=== PATIENT | female | born 1995 | race Caucasian/White ===

== ENCOUNTER 2016-12-09 08:30 | Emergency (ER) | payer SELFPAY ==
[~2016-12-09] VITALS: Ht 160 cm; Wt 127.0 kg
--- NOTE | 2016-12-09 09:05 | PHYS DOC ---
Past Medical History Past Medical History: No Pertinent History, UTI, Other Past Surgical History: Cholecystectomy, Tonsillectomy, Other Alcohol Use: None Drug Use: None Adult General Chief Complaint Chief Complaint: NAUSEA/VOMITING/DIARRHA HPI HPI Patient is a 21 year old female who presents with nausea vomiting and diarrhea that began at 2 AM last night. Patient denies any hematemesis or melena. Denies any chance she is . She states she has history of cholecystectomy. Patient is also complaining of generalized bilateral upper abdominal pain. Patient states she does have history of frequent UTIs. Review of Systems Review of Systems Constitutional: Denies fever or chills [] Eyes: Denies change in visual acuity, redness, or eye pain [] HENT: Denies nasal congestion or sore throat [] Respiratory: Denies cough or shortness of breath [] Cardiovascular: No additional information not addressed in HPI [] GI: Nausea vomiting diarrhea and generalized bilateral upper abdominal pain : Denies dysuria or hematuria [] Musculoskeletal: Denies back pain or joint pain [] Integument: Denies rash or skin lesions [] Neurologic: Denies headache, focal weakness or sensory changes [] Endocrine: Denies polyuria or polydipsia [] Current Medications Current Medications Current Medications Medications (Trade) Dose Ordered Sig/Lynette Start Time Stop Time Status Last Admin Dose Admin Famotidine (Pepcid) 20 mg 1X ONCE 12/09/16 09:15 12/09/16 09:16 DC 12/09/16 09:31 20 MG Ketorolac Tromethamine (Toradol) 30 mg 1X ONCE 12/09/16 09:15 12/09/16 09:16 DC 12/09/16 09:31 30 MG Ondansetron HCl (Zofran) 4 mg 1X ONCE 12/09/16 09:15 12/09/16 09:16 DC 12/09/16 09:31 4 MG Sodium Chloride (Iv Sodium Chloride 0.9% 1000ml Bag) 1,000 ml @ 1,000 mls/hr 1X ONCE 12/09/16 09:15 12/09/16 10:14 DC 12/09/16 09:31 1,000 MLS/HR Allergies Allergies Allergies Coded Allergies Type Severity Reaction Last Updated Verified Penicillins Allergy Intermediate 03/28/15 Yes Physical Exam Physical Exam Constitutional: Well developed, well nourished, no acute distress, non-toxic appearance. [] HENT: Normocephalic, atraumatic, bilateral external ears normal, oropharynx moist, no oral exudates, nose normal. [] Eyes: PERRLA, EOMI, conjunctiva normal, no discharge. [] Neck: Normal range of motion, no tenderness, supple, no stridor. [] Cardiovascular:Heart rate regular rhythm, no murmur [] Lungs & Thorax: Bilateral breath sounds clear to auscultation [] Abdomen: Bowel sounds normal, soft, diffuse tenderness to bilateral upper abdomen, negative Vargas's sign, no right lower quadrant pain or tenderness on exam. No masses, no pulsatile masses. [] Negative psoas sign, negative obturator sign. No guarding no rebound tenderness Skin: Warm, dry, no erythema, no rash. [] Back: No tenderness, no CVA tenderness. [] Extremities: No tenderness, no cyanosis, no clubbing, ROM intact, no edema. [] Neurologic: Alert and oriented X 3, normal motor function, normal sensory function, no focal deficits noted. [] Psychologic: Affect normal, judgement normal, mood normal. [] Current Patient Data Vital Signs Vital Signs Date Time Temp Pulse Resp B/P Pulse Ox O2 Delivery O2 Flow Rate FiO2 12/09/16 10:21 74 16 113/66 100 Room Air 12/09/16 08:48 97.9 97.9 Lab Values Laboratory Tests Test 12/09/16 08:57 12/09/16 09:20 Urine Collection Type Unknown Urine Color Yellow Urine Clarity Cloudy Urine pH 8.5 Urine Specific Dumont >=1.030 Urine Protein 100mg/dL (NEG-TRACE) Urine Glucose (UA) Negativemg/dL (NEG) Urine Ketones (Stick) Negativemg/dL (NEG) Urine Blood Small (NEG) Urine Nitrite Negative (NEG) Urine Bilirubin Negative (NEG) Urine Urobilinogen Dipstick 1.0mg/dL (0.2 mg/dL) Urine Leukocyte Esterase Small (NEG) Urine RBC 1-2/HPF (0-2) Urine WBC 1-4/HPF (0-4) Urine Squamous Epithelial Cells Many/LPF Urine Bacteria Mod/HPF (0-FEW) Urine Mucus Marked/LPF Urine Test Negative (NEG) White Blood Count 15.2x10^3/uL (4.0-11.0) H Red Blood Count 5.55x10^6/uL (3.50-5.40) H Hemoglobin 15.7g/dL (12.0-15.5) H Hematocrit 46.9% (36.0-47.0) Mean Corpuscular Volume 84fL (79-100) Mean Corpuscular Hemoglobin 28pg (25-35) Mean Corpuscular Hemoglobin Concent 34g/dL (31-37) Red Cell Distribution Width 13.5% (11.5-14.5) Platelet Count 283x10^3/uL (140-400) Neutrophils (%) (Auto) 85% (31-73) H Lymphocytes (%) (Auto) 11% (24-48) L Monocytes (%) (Auto) 4% (0-9) Eosinophils (%) (Auto) 0% (0-3) Basophils (%) (Auto) 0% (0-3) Neutrophils # (Auto) 12.8x10^3uL (1.8-7.7) H Lymphocytes # (Auto) 1.6x10^3/uL (1.0-4.8) Monocytes # (Auto) 0.6x10^3/uL (0.0-1.1) Eosinophils # (Auto) 0.0x10^3/uL (0.0-0.7) Basophils # (Auto) 0.0x10^3/uL (0.0-0.2) Sodium Level 139mmol/L (136-145) Potassium Level 3.9mmol/L (3.5-5.1) Chloride Level 104mmol/L (98-107) Carbon Dioxide Level 28mmol/L (21-32) Anion Gap 7 (6-14) Blood Urea Nitrogen 16mg/dL (7-20) Creatinine 0.8mg/dL (0.6-1.0) Estimated GFR (Cockcroft-Gault) 90.5 BUN/Creatinine Ratio 20 (6-20) Glucose Level 140mg/dL (70-99) H Calcium Level 9.3mg/dL (8.5-10.1) Total Bilirubin 0.6mg/dL (0.2-1.0) Aspartate Amino Transferase (AST) 19U/L (15-37) Alanine Aminotransferase (ALT) 33U/L (14-59) Alkaline Phosphatase 73U/L (46-116) Total Protein 8.7g/dL (6.4-8.2) H Albumin 4.0g/dL (3.4-5.0) Albumin/Globulin Ratio 0.9 (1.0-1.7) L Lipase 158U/L (73-393) Laboratory Tests 12/09/16 09:20 Laboratory Tests 12/09/16 09:20 EKG EKG [] Radiology/Procedures Radiology/Procedures [] Course & Med Decision Making Course & Med Decision Making Pertinent Labs and Imaging studies reviewed. (See chart for details) Patient is in the ED with nausea vomiting and diarrhea. Negative urine hCG, urine positive for UTI, CBC with a WBC of 15.2 and a slight left shift. CMP with no acute findings. Lipase is normal. Patient was given 1 L of IV fluid, Zofran, Toradol, and famotidine. She currently states her pain is almost gone. She also states she has not had any diarrhea since she came to the ED. She states she feels better. Her diarrhea nausea and vomiting could probably be viral. She was discharged with Bactrim for 3 days for UTI. Discharged with promethazine for nausea vomiting. Instructed to push fluids maintain good hand hygiene. Instructed to return to the ED at any point symptoms worsen. Instructed to follow-up with her own PCP in the next 7 days. Dragon Disclaimer Dragon Disclaimer This electronic medical record was generated, in whole or in part, using a voice recognition dictation system. Departure Departure Impression: Primary Impression: Nausea and vomiting Additional Impressions: Diarrhea Urinary tract infection Disposition: 01 HOME, SELF-CARE Condition: STABLE Referrals: UNKNOWN PCP NAME (PCP) Follow-up with your own doctor in the next 7 days. Patient Instructions: Diarrhea, Nausea and Vomiting, [id number], Urinary Tract Infection Additional Instructions: You were seen for diarrhea nausea and vomiting as well as urinary tract infection. Diarrhea nausea and vomiting are probably viral illness. Push fluids , maintain good hand hygiene, complete your antibiotics for UTI treatment. Use the prescribed medicines for nausea and vomiting as needed, come back to the emergency room at any point symptoms worsen. Scripts Dicyclomine Hcl 20 Mg Tablet1 Tab PO TID #20 TAB Ref 1 Prov:EMIL WYNN BOX LOADER 12/09/16 Promethazine Hcl 25 Mg Tablet1 Tab PO PRN Q6HRS #20 TAB Prov:EMIL WYNN APRN 12/09/16 Sulfamethoxazole/Trimethoprim (Bactrim Ds Tablet)1 Each Tablet1 Tab PO BID #6 TAB Prov:EMIL WYNN APRN 12/09/16 Problem Qualifiers Primary Impression: Nausea and vomiting Vomiting type: unspecified Vomiting Intractability: non-intractable Qualified Code: R11.2 - Nausea with vomiting, unspecified Additional Impressions: Diarrhea Diarrhea type: unspecified type Qualified Code: R19.7 - Diarrhea, unspecified Urinary tract infection Urinary tract infection type: acute cystitis Hematuria presence: without hematuria Qualified Code: N30.00 - Acute cystitis without hematuria EMIL WYNN APRN Dec 09, 2016 09:05
[2016-12-09 09:08] LABS: NEG OBC UR NEG; POS OBC UR POS
[2016-12-09 09:12] LABS: BILIRUBIN,URINE NEGATIVE (NEG); GLUCOSE,URINE NEGATIVE (NEG); NITRITE,URINE NEGATIVE (NEG); PH,URINE 8.5; PROTEIN,URINE 100 mg/dL (NEG-TRACE)
[2016-12-09] MEDS ORDERED: KETOROLAC TROMETHAMINE 30 MG/ML SYRINGE. IV ONE (09:15)
[2016-12-09] MEDS ORDERED: IV NORMAL SALINE 1000ML BAG 1,000 ML IV ONE (09:15)
[2016-12-09] MEDS ORDERED: FAMOTIDINE 20 MG/2 ML VIAL IVP ONE (09:15)
[2016-12-09] MEDS ORDERED: ONDANSETRON PF 4 MG/2 ML VIAL. IV ONE (09:15)
[2016-12-09 09:23] LABS: BACTERIA,URINE MOD /HPF (0-FEW); SQUAMOUS EPITHELIAL CELL,UR MANY /LPF
[2016-12-09 09:46] LABS: BASO % 0 % (0-3); EOS % 0 % (0-3); HEMATOCRIT 46.9 % (36.0-47.0); HEMOGLOBIN 15.7 g/dL (12.0-15.5); LYMPH # 1.6 x10^3/uL (1.0-4.8); LYMPH % 11 % (24-48); MEAN CORPUSCULAR HEMOGLOBIN 28 pg (25-35); MEAN CORPUSCULAR HGB CONC 34 g/dL (31-37); MEAN CORPUSCULAR VOLUME 84 fL (79-100); MONO % 4 % (0-9); NEUT % 85 % (31-73); PLATELET COUNT 283 x10^3/uL (140-400); RED BLOOD COUNT 5.55 x10^6/uL (3.50-5.40); RED CELL DISTRIBUTION WIDTH 13.5 % (11.5-14.5); WHITE BLOOD COUNT 15.2 x10^3/uL (4.0-11.0)
[2016-12-09 09:49] LABS: CALCIUM 9.3 mg/dL (8.5-10.1); CREATININE 0.8 mg/dL (0.6-1.0); GFR 90.5; POTASSIUM 3.9 mmol/L (3.5-5.1)
[2016-12-09 09:54] LABS: ALBUMIN/GLOBULIN RATIO 0.9 (1.0-1.7); TOTAL BILIRUBIN 0.6 mg/dL (0.2-1.0); TOTAL PROTEIN 8.7 g/dL (6.4-8.2)
[2016-12-09 10:21] VITALS: BP 113/66
[2016-12-09] MEDS ORDERED: PROM25TA10 PO (10:47)
[2016-12-09] MEDS ORDERED: SULF1TAB24 PO (10:47)
[2016-12-09] MEDS ORDERED: DICY20TA3 PO (10:47)
== END 2016-12-09 11:12 | disposition home or self-care (01) ==
LOC: ER 08:30
DX: N39.0 Urinary tract infection, site not specified (principal); R11.2 Nausea with vomiting, unspecified; R19.7 Diarrhea, unspecified; Z90.49 Acquired absence of other specified parts of digestive tract; Z88.0 Allergy status to penicillin
CPT/HCPCS: 36415; 80053; 81001; 81025; 83690; 85027; 96361; 96374; 96375; 99284; J1885; J2405; J7030; S0028

== ENCOUNTER 2021-10-03 19:36 | Emergency (ER) | payer SELFPAY ==
[~2021-10-03] VITALS: Ht 160 cm; Wt 96.8 kg
[~2021-10-03 19:36] MED LIST: DICY20TA PO; PROM25TA10 PO; SULF1TAB24 PO
[2021-10-03 20:12] VITALS: BP 188/92
[2021-10-03] MEDS ORDERED: NEOM10DR32 RIGHT EAR (20:28)
[2021-10-03] MEDS ORDERED: AMOX1TAB11 PO (20:28)
--- NOTE | 2021-10-03 20:28 | PHYS DOC ---
Past Medical History Past Medical History: Depression Past Surgical History: Cholecystectomy, Tonsillectomy Smoking Status: Former Smoker Alcohol Use: Occasionally Drug Use: None General Adult EDM: Chief Complaint: EARACHE/EAR PAIN HPI: HPI: Patient is a 26 year old female patient with past medical history of depression presents today with right ear pain that is been going on for about a week and a half. Patient does state that the ear pain got worse about 3 days ago. Patient says that the right side of her face and jaw are also having some pain. Patient states that she is having some nasal congestion as well. Patient denies any cough or sore throat. Patient denies any fevers or chills. Patient is not vaccinated for Covid. Patient does state that she has a history of ear infections. However, usually these happen after swimming outdoors in a [place]. Patient denies any recent swimming. However patient does state that she has been using her Q-tips more often to get "conditioner" out of her ear. Patient has not taken any antibiotics for this and has not seen a physician for this yet. However patient has been using ibuprofen and Tylenol off and on. Review of Systems: Review of Systems: Constitutional: Denies fever or chills Eyes: Denies redness or eye pain HENT: Denies nasal congestion or sore throat, endorses right ear pain and right jaw pain Respiratory: Denies cough or shortness of breath Cardiovascular: Denies chest pain or palpitations GI: Denies abdominal pain, nausea, or vomiting : Denies dysuria or hematuria Musculoskeletal: Denies back pain or joint pain Integument: Denies rash or skin lesions Neurologic: Denies headache, focal weakness or sensory changes Complete systems were reviewed and found to be within normal limits, except as documented in this note. Heart Score: C/O Chest Pain: N/A Risk Scores: Allergies: Allergies: Allergies Coded Allergies Type Severity Reaction Last Updated Verified Penicillins Allergy Intermediate 03/28/15 Yes Physical Exam: PE: Constitutional: Well developed, well nourished, no acute distress, non-toxic appearance HENT: Normocephalic, atraumatic, right tympanic membrane slightly cloudy and left tympanic membrane clear with cone of light, tympanic membrane's nonruptured, some slight redness on external ear and pain with movement of the ear, no lymphadenopathy present anteriorly or posteriorly Eyes: PERRL, EOMI, conjunctiva normal, no discharge Neck: Normal range of motion, no tenderness, supple Lungs & Thorax: No respiratory distress, equal chest rise and fall Abdomen: Soft, no tenderness Skin: Warm, dry, no erythema, no rash Back: No tenderness, no CVA tenderness Extremities: No tenderness, ROM intact, no edema Neurologic: Alert and oriented X 3, normal motor function, normal sensory function, no focal deficits noted Psychologic: Affect normal, judgment normal Course & Med Decision Making: Course & Med Decision Making 26-year-old female with past medical history of depression is presenting with right ear pain that has been going on for about a week and a half and has not been getting better. Patient appears to have otitis externa considering she has pain with movement of the external ear and some redness associated with the right ear canal. Patient does have a slightly cloudy right tympanic membrane which may be due to the nasal congestion. At this point, we are going to give the patient some steroids in the department and prescribe her with antibiotic eardrops. Patient is also instructed to alternate ibuprofen and Tylenol for pain relief. She was also given a prescription for Augmentin to be used if the ear pain has not been getting any better in 48 hours under "watch and wait" indications. Patient does states she has a family history of penicillin allergy. However, the patient states that she has taken amoxicillin several times with no issues. Patient stable for discharge with outpatient follow-up with PCP. Discussed findings and plan with patient, who acknowledges understanding and agreement. Sonya Disclaimer: Sonya Disclaimer: This electronic medical record was generated, in whole or in part, using a voice recognition dictation system. Departure Departure Impression: Primary Impression: Otalgia of right ear Disposition: HOME / SELF CARE / HOMELESS Condition: STABLE Referrals: NO PCP (PCP) LAUREL GILBERT MD Patient Instructions: Otitis Externa, [id number], Otitis Media, Adult, [id number] Additional Instructions: Continue to use [id number] ibuprofen and or Tylenol for pain or discomfort. Use prescribed antibiotic drops as directed. Hold oral antibiotics for 48 hours. If symptoms worsen or for fever > 100.3 F after 48 hours then start antibiotics as prescribed. Scripts Neomycin/Polymyxin B Sulf/Hc (IGCDBOQA-[id number]-FQ EAR SUSP) 10 Ml Drops.susp 4 DROP RIGHT EAR TID for 5 Days, #10 ML Prov: SINDY OVALLE DO 10/03/21 Amoxicillin/Potassium Clav (AMOX TR-K CLV 875-125 MG TAB) 1 Each Tablet 1 TAB PO BID for 7 Days, #14 TAB Prov: SINDY OVALLE DO 10/03/21 SINDY OVALLE DO Oct 03, 2021 20:28
[2021-10-03] MEDS ORDERED: IBUPROFEN 200 MG TABLET. PO ONE (20:30)
[2021-10-03] MEDS ORDERED: DEXAMETHASONE 4 MG TABLET PO ONE (20:30)
== END 2021-10-03 20:39 | disposition home or self-care (01) ==
LOC: ER 19:36
DX: H92.01 Otalgia, right ear (principal); Z87.891 Personal history of nicotine dependence; Z88.0 Allergy status to penicillin
CPT/HCPCS: 99283

== ENCOUNTER 2021-12-11 18:44 | Emergency (ER) | payer SELFPAY ==
[~2021-12-11] VITALS: Ht 160 cm; Wt 94.0 kg
[~2021-12-11 18:44] MED LIST changes: +AMOX1TAB11 PO; +NEOM10DR32 RIGHT EAR
[2021-12-11 21:40] VITALS: BP 134/67
[2021-12-11 21:56] LABS: BILIRUBIN,URINE NEGATIVE (NEG); CLARITY,URINE TURBID; COLOR,URINE YELLOW; NITRITE,URINE NEGATIVE (NEG); PH,URINE 7.5 (<5.0-8.0); PROTEIN,URINE NEGATIVE (NEG-TRACE); UROBILINOGEN,URINE 0.2 mg/dL (0.2 mg/dL)
--- NOTE | 2021-12-11 21:59 | PHYS DOC ---
Past Medical History Past Medical History: Depression Past Surgical History: Cholecystectomy, , Tonsillectomy, Other Additional Past Surgical Histo: D&C Smoking Status: Never Smoker Alcohol Use: Rarely Drug Use: None General Adult EDM: Chief Complaint: COUGH HPI: HPI: Patient is a 26-year-old female presents to the emergency department with chief complaint of right lateral rib pain that radiates to her back along the ribs with cough and movement for the past 2 weeks. Patient reports noticing a sharp pain after she coughed really hard about 2 weeks ago, patient is unable to articulate a specific date and time of onset. Patient reports no pain when not moving or not coughing, does not have pain with normal inspiration and expiration, reports her pain is sharp rating a 5 to a 6 out of 10 pain with movement or hard cough. Patient reports her cough is nonproductive. Patient is concerned she may have pneumonia as she had similar symptoms when she was hospitalized with bronchitis and pneumonia several years ago. Patient reports she has since received the Pneumovax vaccine related to her hospitalization of pneumonia. Patient denies chest pain, chest palpitation, shortness of breath, denies throat pain, fever or chills. Patient denies abdominal pains, increased urination, dysuria, hematuria, denies vaginal discharge. Patient reports a last menstrual cycle of 2 months ago stating she is on Mirena and has a menstrual cycle every other month or so. Patient reports taking citalopram and BuSpar for anxiety and depression, does not take other medications. Reports she does not have a primary care physician, patient is not concerned for the COVID-19 virus, states she has not been vaccinated, reports that she tested negative yesterday for for the COVID-19 virus. Patient denies other physical complaints or physical concerns Review of Systems: Review of Systems: 14 body systems of review of systems have been reviewed. See HPI for pertinent positives and negative responses, otherwise all other systems are negative, nonpertinent or noncontributory. Constitutional: Negative except as outlined in HPI above. Skin: Negative except as outlined in HPI above. Eyes: Negative except as outlined in HPI above. HENT: Negative except as outlined in HPI above. Respiratory: Negative except as outlined in HPI above. Cardiovascular: Negative except as outlined in HPI above. GI: Negative except as outlined in HPI above. : Negative except as outlined in HPI above. Musculoskeletal: Negative except as outlined in HPI above. Integument: Negative except as outlined in HPI above. Neurologic: Negative except as outlined in HPI above. Endocrine: Negative except as outlined in HPI above. Lymphatic: Negative except as outlined in HPI above. Psychiatric: Negative except as outlined in HPI above. Heart Score: C/O Chest Pain: No Risk Factors: Risk Factors: DM, Current or recent (<one month) smoker, HTN, HLP, family history of CAD, obesity. Risk Scores: Score 0 - 3: 2.5% MACE over next 6 weeks - Discharge Home Score 4 - 6: 20.3% MACE over next 6 weeks - Admit for Clinical Observation Score 7 - 10: 72.7% MACE over next 6 weeks - Early Invasive Strategies Allergies: Allergies: Allergies Coded Allergies Type Severity Reaction Last Updated Verified Penicillins Allergy Intermediate 03/28/15 Yes Physical Exam: PE: Constitutional: Well developed, well nourished, no acute distress, non-toxic appearance. 26-year-old female in no apparent distress. HENT: Normocephalic, atraumatic. Oropharynx moist, pink, no deep tissue infectious process appreciated, no lymphadenopathy of the head and neck appreciated, bilateral TMs within normal limits intact. Eyes: Conjunctiva normal, no discharge. Neck: Normal range of motion, no stridor. Cardiovascular: No cyanosis appreciated, distal cap refill less than 2 seconds. Heart sounds S1-S2 to auscultation. Regular rate and rhythm Lungs & Thorax: Patient is in no respiratory distress, no audible adventitious lung sounds appreciated. Lung sounds clear to auscultation all lung garcia. Pain to palpation elicited along the lower musculoskeletal structures of the right lateral thorax that radiates to the back. No crepitus appreciated, no midline spinal tenderness appreciated. Abdomen: Nontender, no abnormalities noted. Skin: Warm, dry, no erythema, no rash. Back: No tenderness, no deformities. No right-sided or left-sided CVA TTP. Extremities: No tenderness, no cyanosis, no clubbing, ROM intact, no edema. Neurologic: Alert and oriented X 3, normal motor function, normal sensory function, no focal deficits noted. Psychologic: Affect normal, judgement normal, mood normal. EKG: EKG: [] Radiology/Procedures: Radiology/Procedures: STATUS: REG ER ORD. PHYSICIAN: SINDY HUERTA APRN REASON: Right low lateral rib pain with cough PROCEDURE: CHEST AP ONLY AP chest. HISTORY: Low right lateral rib pain with cough AP view was taken of the chest. There is no pneumothorax or pleural effusion. There is mild haziness from atelectasis or infiltrate in the right lung base. No other infiltrates are noted. PA and lateral views would be of benefit for better evaluation. IMPRESSION: 1. Mild hazy atelectasis or infiltrate right lung base without other infiltrates. Electronically signed by: Brandon Garrido MD (12/11/2021 10:16 PM) [facility] Course & Med Decision Making: Course & Med Decision Making Pertinent Labs and Imaging studies reviewed. (See chart for details) 26-year-old female, vital signs reviewed, presents to the emergency department concerning for right lateral rib discomfort suspecting she has pneumonia again as she had similar symptoms 2 years ago and was diagnosed with community- acquired pneumonia. Physical examination concerning for chest wall pain versus pulmonary component. Will order chest x-ray, urinalysis assay with test as pain does radiate near CVA area. The patient is not per urine test, urinalysis assay negative for concerning findings there is no hematuria, this pain is low likelihood of urinary tract infection or renal stone. Chest x-ray is concerning for right lower lobe pneumonia, related to patient's history and similar symptoms we will treat for community-acquired pneumonia of right lower lobe. Discussed patient case with ED attending physician Dr. Rivera who reviewed x-ray for wet read, suggested cefdinir and azithromycin coverage. Discussed with patient findings, diagnosis of community-acquired pneumonia, will start first dosing of antibiotics in ED prior to discharge, will send prescriptions for cefdinir and azithromycin to pharmacy of choice, reviewed antibiotic side effects with patient, strict follow-up with primary care for reevaluation of pneumonia symptoms, return ER precautions and concerns, patient gave verbal understanding of and is amenable to ED discharge planning. Discussed with the patient all findings and diagnostic testing as well as the need to follow-up with their primary care provider for further evaluation and treatment or return to the ED if any new or worsening symptoms. Strict return precautions were also discussed at length, the patient voiced understanding and agreement with the discharge planning. The patient was nontoxic in appearance, in no apparent distress, and hemodynamically stable at the time of disposition. Sonya Disclaimer: Sonya Disclaimer: This electronic medical record was generated, in whole or in part, using a voice recognition dictation system. Departure Departure Impression: Primary Impression: Community acquired pneumonia Qualified Codes: J18.9 - Pneumonia, unspecified organism Disposition: HOME / SELF CARE / HOMELESS Condition: GOOD Referrals: NO PCP (PCP) Patient Instructions: Pneumonia, Adult Additional Instructions: You were seen today in the emergency department for right-sided lower rib cage pain. An x-ray performed today showed that you have a pneumonia of your right lower lobe. Your urine did not show any concerning signs of infection or kidney stone, you are not . As we discussed I am starting you on 2 antibiotics, please take as prescribed until complete. You have been given your first dose in the emergency department today. Please continue to use Tylenol or Motrin for any fevers or aches and pains you may experience. Return to the emergency department for worsening symptoms or other concerns. You had indicated you do not have a primary care physician, I am adding a list of area healthcare providers, please choose a healthcare provider to establish primary health care soon. Thank you for visiting our Emergency Department. It was a pleasure taking care of you today in the emergency department and we appreciate you trusting us with your care. If any additional problems come up don't hesitate to return to visit us. Please follow up with your primary care provider so they can plan additional care if needed and know about the problem that you had. If symptoms worsen come back to the Emergency Department. Any concerning symptoms that start such as chest pain, shortness of air, weakness or numbness on one side of the body, running high fevers or any other concerning symptoms return to the ER. Bogdan [facility] [address] [place] [address] [facility] [address] [place] [address] [facility] [address] [facility] [place] [address] [facility] [address] [place] [address] [facility] [address] [place] [address] [facility] [address] [place] [address] [facility] [address] [place] [address] Pending [facility] [address] [place] [address] Pending Sale To [facility] [address] [place] [address] [facility] Department [address] [place] [address] Scripts Azithromycin (AZITHROMYCIN TABLET) 250 Mg Tablet 1 PKG PO UD for Pneumonia for 5 Days, #6 TAB 0 Refills 2 the first day followed by 1 for days 2-5 Prov: SINDY HUERTA SLUMBER ROOM ATTENDANT 12/11/21 Cefdinir (CEFDINIR) 300 Mg Capsule 1 CAP PO BID for 5 Days, #10 CAP 0 Refills Prov: SINDY HUERTA SLUMBER ROOM ATTENDANT 12/11/21 SINDY HUERTA SLUMBER ROOM ATTENDANT Dec 11, 2021 21:59
[2021-12-11 22:07] LABS: AMORPHOUS SEDIMENT,UR PRESENT /HPF; BACTERIA,URINE 0 /HPF (0-FEW); WBC,URINE OCC /HPF (0-4)
--- NOTE | 2021-12-11 22:18 | RAD ---
AP chest. HISTORY: Low right lateral rib pain with cough AP view was taken of the chest. There is no pneumothorax or pleural effusion. There is mild haziness from atelectasis or infiltrate in the right lung base. No other infiltrates are noted. PA and lateral views would be of benefit for better evaluation. IMPRESSION: 1. Mild hazy atelectasis or infiltrate right lung base without other infiltrates. Electronically signed by: Brandon Garrido MD (12/11/2021 10:16 PM) [facility]
[2021-12-11] MEDS ORDERED: AZIT250T6 PO (23:27)
[2021-12-11] MEDS ORDERED: CEFD300C PO (23:27)
[2021-12-11] MEDS ORDERED: AZITHROMYCIN 250 MG TABLET. ONE (23:43)
[2021-12-11] MEDS ORDERED: IBUPROFEN 200 MG TABLET. PO ONE ×2 (23:44→23:45)
[2021-12-11] MEDS ORDERED: IBUPROFEN 400 MG TABLET. PO ONE (23:44)
[2021-12-11] MEDS ORDERED: AZITHROMYCIN 250 MG TABLET. PO ONE (23:45)
[2021-12-11] MEDS ORDERED: CEFDINIR 300 MG CAPSULE PO ONE (23:45)
[2021-12-11] MEDS ORDERED: ACETAMINOPHEN 500 MG TABLET PO ONE (23:45)
== END 2021-12-11 23:35 | disposition home or self-care (01) ==
LOC: ER 18:44
DX: J18.9 Pneumonia, unspecified organism (principal); Z88.0 Allergy status to penicillin
CPT/HCPCS: 71045; 81001; 81025; 99284